=== PATIENT | male | born 1945 | race Caucasian/White ===

== ENCOUNTER 2020-03-02 13:17 | Observation (INO) ==
[2020-03-02] MEDS ORDERED: Isovue-370 500 ML BOTTLE IVP ONE (17:40)
[2020-03-02] MEDS ORDERED: Ondansetron 4 MG/2 ML VIAL IVP ONE ×2 (17:40→18:54)
[2020-03-02] MEDS ORDERED: *HR* HYDROmorphone (PF) 1 MG/ML SYRINGE IVP ONE (17:40)
[2020-03-02 18:46] LABS: Alanine Aminotransferase 18 Units/L (7-52); Albumin 4.7 g/dL (3.5-5.7); Albumin/Globulin Ratio 1.5 (1.1-2.2); Alkaline Phosphatase 69 Units/L (34-104); Aspartate Amino Transferase 34 Units/L (13-39); BUN/Creatinine Ratio 14 (6-26); Bilirubin,Total 0.5 mg/dL (0.3-1.0); Blood Urea Nitrogen 13 mg/dL (8-23); Calcium 9.9 mg/dL (8.6-10.3); Carbon Dioxide 25 mEq/L (23-29); Chloride 99 mEq/L (98-107); Globulin 3.1 g/dL (2.4-3.5); Glucose 130 mg/dL (70-105); Osmolality,Calculated 284 (280-300); Potassium 4.1 mEq/L (3.5-5.1); Sodium 136 mEq/L (136-145); Total Protein 7.8 g/dL (6.4-8.9); eGFR For African Americans > 60 (> 60); eGFR For Non-African Americans > 60 (> 60)
[2020-03-02] MEDS ORDERED: *HR* FentaNYL (PF) 100 MCG/2 ML VIAL IVP ONE ×2 (18:54→20:30)
[2020-03-02 18:55] LABS: Basophils % 0.4 %; Hematocrit 53.4 % (37.5-50.1); Hemoglobin 17.4 g/dL (12.9-16.9); Immature Granulocytes % 0.6 % (0-4); Lymphocytes # 1.4 K/mcL (0.6-4.6); Lymphocytes % 13.3 %; Mean Corpuscular HGB Conc 32.6 g/dL (31.6-35.5); Mean Corpuscular Hemoglobin 28.8 pg (28.0-33.3); Mean Corpuscular Volume 88.4 fL (83.0-100.0); Mean Platelet Volume 11.2 fL (9.4-12.4); Monocytes # 0.3 K/mcL (0.0-1.3); Monocytes % 3.3 %; Neutrophils # 8.5 K/mcL (1.6-8.9); Platelet Count 201 K/mcL (140-400); Red Blood Count 6.04 M/mcL (4.19-5.50); Red Cell Distribution Width 13.3 % (11.5-14.5); Segmented Neutrophils % 82.4 %; White Blood Count 10.3 K/mcL (4.3-11.1)
[2020-03-02 20:30] LABS: Bilirubin,Urine Negative (Negative); Blood,Urine Trace (Negative); Clarity,Urine Clear (Clear); Color,Urine Light-Yellow (Yellow); Glucose,Urine (UA) Normal (Normal); Ketones,Urine Negative (Negative); Leukocyte Esterase,Urine Negative (Negative); Mucus,Urine Few per lpf (None-Few); Nitrite,Urine Negative (Negative); PH,Urine 6.5 pH Units (5.0-8.0); Protein,Urine Trace mg/dL (Neg-Trace); RBC,Urine 0-3 per hpf (0-3); Specific Gravity,Urine 1.014 (1.010-1.025); Urobilinogen,Urine Normal (Normal)
[2020-03-02] MEDS ORDERED: *HR* HYDROmorphone 2 MG/ML SYRINGE IVP ONE (23:16)
[2020-03-02] MEDS ORDERED: Dexamethasone 4 MG/ML VIAL IVP PRN (23:40)
[2020-03-02] MEDS: *HR* HYDROmorphone (PF) 1 MG/ML SYRINGE IVP PRN (23:47)
[2020-03-02] MEDS ORDERED: Acetaminophen 325 MG TABLET PO PRN (23:55)
[2020-03-02] MEDS ORDERED: Naloxone 0.4 MG/ML INJ IVP PRN (23:55)
[2020-03-03] MEDS ORDERED: Ondansetron 4 MG/2 ML VIAL IVP PRN
[2020-03-03] MEDS ORDERED: Dextrose Gel 15 GM/37.5 ML TUBE PO PRN ×2 (00:27)
[2020-03-03] MEDS ORDERED: D5% in Water 1,000 ML IVC PRN (00:27)
[2020-03-03] MEDS ORDERED: *HR* Dextrose 50 % in Water (Vial) 50 ML VIAL IVP PRN (00:27)
[2020-03-03] MEDS: *HR* Enoxaparin 40 MG/0.4 ML SYRINGE SQ SCH (05:20)
[2020-03-03 07:10] LABS: Hematocrit 52.4 % (37.5-50.1); Hemoglobin 17.2 g/dL (12.9-16.9); Mean Corpuscular HGB Conc 32.8 g/dL (31.6-35.5); Mean Corpuscular Volume 88.4 fL (83.0-100.0); Mean Platelet Volume 10.7 fL (9.4-12.4); Platelet Count 187 K/mcL (140-400); Red Blood Count 5.93 M/mcL (4.19-5.50); Red Cell Distribution Width 13.3 % (11.5-14.5)
[2020-03-03 07:12] LABS: BUN/Creatinine Ratio 14 (6-26); Blood Urea Nitrogen 13 mg/dL (8-23); Calcium 9.9 mg/dL (8.6-10.3); Carbon Dioxide 27 mEq/L (23-29); Chloride 100 mEq/L (98-107); Chol/HDL Ratio 2.5 (0-4.9); Cholesterol 121 mg/dL (< 200); Glucose 127 mg/dL (70-105); HDL Cholesterol 49 mg/dL (40-59); LDL Cholesterol,Calculated 53 mg/dL (< 100); Magnesium 1.9 mg/dL (1.6-2.6); Osmolality,Calculated 286 (280-300); Phosphorous 4.4 mg/dL (2.7-4.5); Potassium 3.3 mEq/L (3.5-5.1); Sodium 137 mEq/L (136-145); Triglycerides 96 mg/dL (< 150); eGFR For African Americans > 60 (> 60); eGFR For Non-African Americans > 60 (> 60)
[2020-03-03 07:47] LABS: Estimated Average Glucose 143 mg/dl
[2020-03-03] MEDS: Insulin LISPRO 300 UNITS/3 ML VIAL SQ SCH ×3 (08:03→16:50)
[2020-03-03] MEDS: Ringers Solution, Lactated 1,000 ML IVC SCH ×2 (10:12→20:03)
[2020-03-03] MEDS ORDERED: Gadolinium Contrast Agent (WT Based) IV PRN (11:29)
[2020-03-03] MEDS: Metoprolol XL (24 HR) Succ 50 MG TAB.ER.24H PO SCH (13:49)
[2020-03-03] MEDS: amLODIPine 5 MG TABLET PO SCH (13:49)
[2020-03-03] MEDS ORDERED: Insulin LISPRO 300 UNITS/3 ML VIAL SQ SCH (21:00)
[2020-03-04 01:46] LABS: Hematocrit 50.7 % (37.5-50.1); Hemoglobin 16.5 g/dL (12.9-16.9); Mean Corpuscular HGB Conc 32.5 g/dL (31.6-35.5); Mean Corpuscular Hemoglobin 28.9 pg (28.0-33.3); Mean Corpuscular Volume 88.9 fL (83.0-100.0); Mean Platelet Volume 10.4 fL (9.4-12.4); Platelet Count 167 K/mcL (140-400); Red Cell Distribution Width 13.6 % (11.5-14.5); White Blood Count 9.7 K/mcL (4.3-11.1)
[2020-03-04 02:04] LABS: BUN/Creatinine Ratio 16 (6-26); Blood Urea Nitrogen 15 mg/dL (8-23); Carbon Dioxide 24 mEq/L (23-29); Chloride 105 mEq/L (98-107); Glucose 98 mg/dL (70-105); Osmolality,Calculated 287 (280-300); Potassium 3.8 mEq/L (3.5-5.1); Sodium 138 mEq/L (136-145); eGFR For African Americans > 60 (> 60); eGFR For Non-African Americans > 60 (> 60)
[2020-03-04] MEDS: *HR* HYDROmorphone (PF) 1 MG/ML SYRINGE IVP PRN (03:26)
[2020-03-04] MEDS: *HR* Enoxaparin 40 MG/0.4 ML SYRINGE SQ SCH (05:17)
[2020-03-04 07:01] VITALS: BP 152/81
[2020-03-04] MEDS: Insulin LISPRO 300 UNITS/3 ML VIAL SQ SCH (07:23)
[2020-03-04] MEDS: amLODIPine 5 MG TABLET PO SCH (08:28)
[2020-03-04] MEDS: Metoprolol XL (24 HR) Succ 50 MG TAB.ER.24H PO SCH (08:28)
[2020-03-04] MEDS ORDERED: Nicotine 21 MG PATCH.TD24 TD SCH (09:00)
[2020-03-04] MEDS ORDERED: Lisinopril-HCTZ 20-12.5mg TABLET PO SCH (09:00)
== END 2020-03-04 11:20 | disposition home or self-care (01) ==
LOC: 2ANU 13:17 → EMEROOARM 13:17 → SUATTDRO 22:11 → 2ANU 23:37
PROVIDERS: ADMIT Student in an Organized Health Care Education/Training Program; ATTEND Internal Medicine